=== PATIENT | male | born 1980 | race Caucasian/White ===

== ENCOUNTER 2024-01-10 19:02 | Emergency (ER) | payer OTHER, SELFPAY ==
[2024-01-10 19:10] VITALS: BP 121/69; PULSE 82; RESP 16; TEMP 37; O2SAT 98; BMI 25.1
--- NOTE | 2024-01-10 19:17 | ED_ITS ---
HPI - Arrhythmia/Palpitations General Time Seen by Provider: 19:20 Date Seen: 01/10/24 Chief Complaint: Arrhythmia/Palpitations Stated Complaint: Afib this morning - [facility] Time Seen by Provider: 01/10/24 19:03 Source: patient, family and RN notes reviewed Mode of arrival: ambulatory Limitations: no limitations History of Present Illness HPI narrative: Patient is a 43-year-old male coming in with concern of possible arrhythmia such as atrial fibrillation this morning. Was at work, had sudden onset of his heart is beating excessively fast, felt short of breath with it, was diaphoretic thought he was going to pass out, had pain with this. He actually had to lie down. Symptoms lasted about 5 minutes. He had no associated abdominal pain or GI symptoms at the time. He has had spells but of much shorter duration maybe dating back into grade school. [facility] was evaluated [facility], he states he had stress testing, they did not find anything. He will maybe have these spells a couple times a year but today was the longest it ever happen. He thought he was having a heart attack. After this resolved, he did go about his day and had no complications. There is a little respiratory viruses going around the house, he did take some Sudafed yesterday and today, we did review that these can potentiate arrhythmias in some people. He does do about 2 energy drinks a day. He otherwise uses fish oil, magnesium and creatine daily. No illicit substances. He is not aware of any other significant past medical history. His grandfather had presumed NM and while mowing the lawn while in his 60s. He did not get an autopsy, patient believes that they had to resuscitate and tried to do CPR. Patient has no symptoms now and on and has not had any all day after the 5 minute episode. complaint: rapid heart beat and heart racing Related Data Home Medications ?Medication ?Instructions ?Recorded ?Confirmed No Known Home Medications 05/16/22 05/16/22 Allergies Allergy/AdvReac Type Severity Reaction Status Date / Time No Known Drug Allergies Allergy Verified 05/16/22 09:43 Review of Systems Status of ROS: Reports: 6 or more systems reviewed and unremarkable except as noted in History and below [facility] Medical History (Updated 01/10/24 @ 20:38 by Yenny Herrera MD) Sore throat ?J02.9 - Acute pharyngitis, unspecified (ICD-10) Social History Smoking Status: Never smoker Exam Const: Vital Signs, click to edit/add: Vital Signs - 24 hr 01/10/24 19:10 Temperature 98.6 F Pulse Rate [Pulse Oximeter] 82 Respiratory Rate 16 Blood Pressure [Ri ght Upper Arm] 121/69 Pulse Oximetry 98 Oxygen Delivery Me thod Room Air This patient is a 43-year-old male that is alert, interactive, no apparent distress. Pupils are equal round reactive, sclera clear. Able speak in complete sentences. Neck supple, no adenopathy, thyromegaly masses or nodules. Lungs are clear, good air entry, no wheezing or crackles. CV regular rate and rhythm, no murmur, normal S1-S2, no S3-S4. Abdomen is soft, nontender, nondistended, no organomegaly. He has no lower extremity edema. He is ambulatory into the ED of his own accord. Documenting provider has reviewed patient's vital signs: yes Course Course ED Course: Will have him on cardiac monitoring here but patient understands that unless this happens during a period of monitoring, we will not know what it is. We can do a troponin just to make sure that he has no elevation and need for further cardiac intervention or monitoring. We will also do CBC and basic metabolic panel. Right now is EKG is quite reassuring and he is asymptomatic. We discussed that he may need a longer monitor placed, we do not have those here, he may need to follow up with Cardiology. Reevaluation(s) Time of Reevaluation #1: 20:35 Reevaluation #1: Reviewed with patient his normal labs outside of the possibly low hemoglobin at 13.3. 13.5 is lower limit of normal. I do think this should be rechecked within the next month and further worked up if he is indeed showing some mild changes of anemia. He obviously is going to need to follow-up anyway regarding his symptoms. Vital Signs Vital signs: Initial Vital Signs Temperature 98.6 F 01/10/24 19:10 Temperature Source Temporal Artery Scan 01/10/24 19:10 Pulse Rate 82 01/10/24 19:10 Respiratory Rate 16 01/10/24 19:10 Blood Pressure 121/69 01/10/24 19:10 Blood Pressure Mean 86 01/10/24 19:10 Blood Pressure Position Sitting 01/10/24 19:10 Pulse Oximetry 98 01/10/24 19:10 Oxygen Delivery Method Room Air 01/10/24 19:10 Vital Signs Temperature 98.6 F 01/10/24 19:10 Pulse Rate 82 01/10/24 19:10 Respiratory Rate 16 01/10/24 19:10 Blood Pressure 121/69 01/10/24 19:10 Pulse Oximetry 98 01/10/24 19:10 Oxygen Delivery Method Room Air 01/10/24 19:10 Temperature 98.6 F 01/10/24 19:10 Pulse Rate 82 01/10/24 19:10 Respiratory Rate 16 01/10/24 19:10 Blood Pressure 121/69 01/10/24 19:10 Pulse Oximetry 98 01/10/24 19:10 Oxygen Delivery Method Room Air 01/10/24 19:10 MDM - Arrhythmia/Palpitations Differential Diagnosis Differential diagnosis: Likely palpitations, anxiety, sinus tachycardia, artial fibrillation, artial flutter and supraventricular tachycardia Lab Data Labs: Lab Results 01/10/24 Range/Units 19:45 WBC 7.08 (4.50-11.00) K/uL RBC 4.41 (4.30-5.90) m/uL Hgb 13.3 L (13.5-17.5) gm/dL Hct 39.1 (37.0-53.0) % MCV 89 (80-100) fL MCH 30 (26-34) pg MCHC 34 (32-36) gm/dL RDW Coeff of Bravo 12.3 (11.5-15.5) % Plt Count 272 (140-440) K/uL Neut % (Auto) 73.2 H (42.0-72.0) % Lymph % (Auto) 15.7 L (20-44) % [place] % (Auto) 9.2 (0.0-11.0) % Eos % (Auto) 1.4 (0.0-7.0) % Baso % (Auto) 0.4 (0.0-3.0) % Neut # (Auto) 5.20 (1.7-7.0) K/uL Lymph # (Auto) 1.10 (0.90-2.90) K/uL [place] # (Auto) 0.70 (0.00-0.90) K/UL Eos # (Auto) 0.10 (0.00-0.50) K/uL Baso # (Auto) 0.03 (0.00-0.30) K/uL Abs Immat Gran (auto) 0.01 (0.00-0.30) K/uL Imm/Tot Granulo (auto) 0.1 % Sodium 139 (135-149) mmol/L Potassium 3.9 (3.6-5.1) mmol/L Chloride 106 (96-114) mmol/L Carbon Dioxide 28 (20-32) mmol/L Anion Gap 5 L (7-15) mEq/L BUN 20 (5-24) mg/dL Creatinine 1.3 (0.5-1.5) mg/dL Estimated Creat Clear 78.76 Estimated GFR 69 ml/min Glucose 85 (60-115) mg/dL Calcium 8.8 (8.4-10.6) mg/dL POC Troponin I 0.01 (0.01-0.04) ng/ml ECG Data Attestation: I personally reviewed and interpreted this ECG as follows: (Normal sinus rhythm, 72 beats per minute. No ischemia, no infarct.) ECG interpretation date: 01/10/24 ECG interpretation time: 19:17 Discharge Plan Discharge Clinical Impression: Heart rate fast Patient Disposition: Home, Self-Care Condition: Stable Instructions: Tachycardia (ED) Additional Instructions: You do need to follow-up with your primary care provider. Your hemoglobin needs to be rechecked within the next month, was 13.3 here and 13.5 is the lower limits of normal. If your found to have developed anemia, further evaluation needs to be undertaken. You also need to consider a longer-term heart monitor, talk to them about this or consider Cardiology referral given your history of these episodes. In the interim, she do develop a recurrent episode, do recommend seeking emergent medical evaluation. Call 911 if you need to. There is no evidence of any heart attack or elevated heart enzymes tonight. You have not shown any evidence of arrhythmia while being monitored. Activity Level: Activity as Tolerated Prescriptions: No Action No Known Home Medications Follow Up/Referrals: Provider,Not a Local [Primary Care Provider] - Stand Alone Forms: MyHealth Info Instructions
[2024-01-10 19:54] LABS: Basophils Absolute Auto 0.03 K/uL (0.00-0.30); Basophils Percent Auto 0.4 % (0.0-3.0); Eosinophils Percent Auto 1.4 % (0.0-7.0); Hematocrit 39.1 % (37.0-53.0); Hemoglobin* 13.3 gm/dL (13.5-17.5); Immature Granulocytes Abs Auto 0.01 K/uL (0.00-0.30); Immature Granulocytes Pct Auto 0.1 %; Lymphocytes Percent Auto 15.7 % (20-44); Mean Corpuscular HGB Conc 34 gm/dL (32-36); Mean Corpuscular Hemoglobin 30 pg (26-34); Mean Corpuscular Volume 89 fL (80-100); Monocytes Percent Auto 9.2 % (0.0-11.0); Neutrophils Percent Auto 73.2 % (42.0-72.0); Platelet Count* 272 K/uL (140-440); RDW Coefficient of Variation % 12.3 % (11.5-15.5); Red Blood Count 4.41 m/uL (4.30-5.90); White Blood Count* 7.08 K/uL (4.50-11.00)
--- OUTSIDE RECORDS SUMMARY | 2024-01-10 19:56 | XMS_ITS | Clinical Summary ---
Author Organization [facility] Address [place], [place] [address] Care Team Providers Care Embedded Linux Developer Name Role Phone Gilbert Rico MD Primary Care Provider Allergies No known active allergies Medications Medication Sig Dispensed Refills Start Date End Date Status MEDICATION ORDER COMPOSER Butalbital, unknown dose, gets med from [facility], takes for headaches 0 03/13/2009 Active albuterol HFA 90 mcg/actuation inhalerIndications:B ronchitis Inhale 2 Puffs by mouth every 4 hours if needed (cough, wheeze, tight chest). 1 Inhaler 10/25/2019 Active Active Problems No known active problems Immunizations Name Administration Dates Next Due MMR 09/30/1995 Td (Age >=7 Years) 11/20/1996 Family History Medical History Relation Name Comments Cancer-breast Maternal Grandmother Relation Name Status Comments Maternal Grandmother Social History Tobacco Use Types Packs/Day Years Used Date Smoking Tobacco: Former Cigarettes Q uit: 08/06/2006 Smokeless Tobacco: Never Alcohol Use Standard Drinks/Week Comments Yes 0 (1 standard drink = 0.6 oz pure alcohol) couple times a week- 6-8 drinks at a time Social Connections Answer Date Recorded Frequency of Communication with Friends and Fami ly Not on file 08/15/2021 Financial Resource Strain Answer Date R ecorded Difficulty of Paying Living Expenses Not on file 08/15/2021 Difficulty of Paying Living Expenses Not on file 08/15/2021 Sex and Gender Information Value Date Recorded Sex Assigned at Not on file Gender Identity Not on file Sexual Orientation Not on file Obstetrics History Last Filed Vital Signs Vital Sign Reading Time Taken Comments Blood Pressure 129/71 10/25/2019 8:08 AM CDT Pulse 74 10/25/2019 8:08 AM CDT Temperature 36.3 ??C (97.4 ??F) 10/25/2019 8:08 AM CD T Respiratory Rate 20 10/25/2019 8:08 AM CDT Oxygen Saturation 97% 10/25/2019 8:08 AM CDT Inhaled Oxygen Concentration - - Weight 89.4 kg (197 lb) 04/12/2011 2:46 PM CDT Height 182.9 cm (6') 11/03/2007 8:10 AM CDT Body Mass Index 26.72 11/03/2007 8:10 AM CDT Plan of Treatment Health Maintenance Due Date Last Done Comments Tdap 1989 Depression screening for age 12+ 1990 HIV for age 15-65 1993 BMI (ht and wt on same day) for age 18+ 1996 Hepatitis C screening for ag e 18-79 1996 Tetanus booster 09/08/2019 09/08/2009 (Declined), 11/20/1996 COVID-19 vaccine series (2022-24 season) 2023 Colonoscopy through age 75 2023 Lipids for age 45-75 2023 Influenza for age 9-49 04/15/2024 Pneumococcal series for age 6-64 Aged Out No longer eligible b ased on patient's age to complete this topic Care Teams Embedded Linux Developer Relationship Specialty Start Date End Date Gilbert Rico MD [address] [facility] [address] [place] [id number] PCP - General 09/08/09
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
--- OUTSIDE RECORDS SUMMARY | 2024-01-10 19:56 | XMS_ITS | Encounter Summary ---
Author Name [facility] Organization [facility] Address [address] [place] [address] Support Name Relationship Address Phone FAVIO DODGE Next of Kin [address] [place] [address] FAVIO DODGE Emergency Contact [address] [facility] [place] [address] Insurance Providers: All historical and current Section Date Range: From patient's date of to the date document was created. This section includes the names of all active insurance providers for the patient. Insurance Provider Type of Coverage Plan Name Start of Policy Coverage End of Policy Coverage Group Number Member ID Insurance Provider's Telephone Number Policy Ray's Name Patient's Relationship to Policy Ray [employer] L Aug 15, 2010 [id number] [phone] BELTRAN DODGE PATIENT Selected Encounter This section includes the information on record at [place] for the Encounter. Date/Time Encounter Type Encounter Description Reason Provider Source January 10, 2024 06:38 PM Outpatient Encounter TELEPHONE TRIAGE YANNICK SÁNCHEZ IHE Encounter Template Text not used by [place] Social History: Smoking Status (Most current) and Tobacco Use (All prior to encounter date) This section includes the most current, and the historical, smoking and tobacco- related health factors from the [place] facility where the Encounter took place. Current Smoking Status This section includes the most current smoking, or tobacco-related health factor, from the [place] facility where the Encounter took place. Date/Time Current Smoking Status Comment Facil ity Jul 14, 2022 10:00 AM VA-TOBACCO NEVER USED [facility] Tobacco Use History This section includes a history of the smoking, or tobacco-related health factors, that were collected on or before the date of the Encounter. The data comes from the [place] facility where the Encounter took place. Date/Time Smoking Status/Tobacco Use Comment F acility Mar 20, 2014 12:43 PM FORMER TOBACCO USER 7Y OR GREATE R [facility] December 21, 2012 08:33 AM FORMER TOBACCO USER 7Y OR GREATE R [facility] Sep 28, 2011 01:50 PM FORMER TOBACCO USE >1Y <7Y [facility] Jun 11, 2009 08:00 AM CURRENT TOBACCO USER [facility] Oct 11, 2007 12:23 PM CURRENT TOBACCO USER [facility] Advance Directives: All historical and current Section Date Range: From patient's date of to the date document was created. This section includes ALL of a patient's completed or amended [place] Advance and Rescinded Directives. The entries below indicate that a directive exists for the patient, but an actual copy is not included with this document. The data comes from all [facility]. Date Advance Directives Provider Source Oct 12, 2011 ADVANCE DIRECTIVE DISCUSSION [facility] WASSERMAN [facility] Encounter Notes: All associated encounter notes This section contains the clinical notes associated to the Encounter. Date/Time Encounter Note(s) Provider Source January 10, 2024 06:38 PM RN PROGRESS NOTE: LOCAL TITLE: CCC: CLINICAL TRIAGE STANDARD TITLE: RN PROGRESS NOTE DATE OF NOTE: JANUARY 10, 2024@18:38:31 ENTRY DATE: JANUARY 10, 2024@18:38:31 AUTHOR: MEE SÁNCHEZ COSIGNER: URGENCY: STATUS: COMPLETED Patient Demographics Patient Name: FRANNY DODGE Patient Primary Address: [address] [place] [address] Patient Primary Phone: [phone] Patient : 1980 Patient Age: 43 Call Back Number: [phone] Caller/Recipient Relation to Patient: Self Emergency Contact: FAVIO DODGE Triage Summary Conducted triage/discussed symptoms Utilized the Triage Tool: Yes Chief Complaint: Chest Pain System WHEN: Now, 911 Nurse's Recommendation / WHEN: Now System WHERE: Emergency department Nurse's Recommendation / WHERE: ED Other Nurse's Other / WHERE: local ED WHEN/WHERE modifier reason: Distance from Hospital Patient Disposition Patient/Caregiver agrees to plan of care: Yes Patient WHERE: ED Other Other - Patient Where Disposition: local ED Patient WHEN: Now Patient is Urgent or Emergent Nursing Plan and Disposition Referred patient to higher level of care Instructed to go to Emergency Room (ER) Advised of [place] [employer] [facility] Benefits Nurse Summary Nurse Summary: PATIENT CONCERN/DURATION/ONSET: c/o had an incident this morning of chest tightness with shortness of breath, sweaty, lightheaded and dizzy that lasted about 3-4 minutes. Reports feeling like someone was sitting on the chest with his heart beating 5x the normal. Pike reports feeling anxious at the time and did not check his heart rate. Denies history of heart problems, stroke or near-stroke. Went to work today and just calling now for the symptoms reported above. WHAT HAS PATIENT TRIED TO TREAT THE SYMPTOMS: monitor the symptoms HISTORY/PREVIOUS TREATMENT: Concussion, chronic PTSD WHAT IS PATIENT GOAL FOR THE CALL: Wants to make an appointment with PACT. Was Care Now considered (TELE or VVC)? no PREPARATOR DISPOSITION: Recommended triage is ED evaluation now secondary to severity of symptoms. is instructed to go to the nearest ED. Provided with the post-ED number to call. Pike agreed to this plan of care and verbalized understanding. Pike to call back 07/03, if symptoms changes or gets worse, to go to or ER, if symptoms are severe or emergent. Pike agreed to this plan of care and verbalized understanding. Best contact for is [phone] (Verified). This note was created by a [address] lead developer. Please do not alert this nurse by adding as a signer for future communications. Alerts are not monitored by this user, please reach out to [place] [employer] instead, if indicated. Clinical Contact Center Codes Clinic/Location: [address] PHONE CCC RN [facility] Triage Complete Triage Date: 01/10/2024, 06:30 PM Triage Note: Phone Triage 10 Jan 2024 23:27:06 +0000 [facility] Demographics 43 y/o Male Results CC: Chest Pain Software suggested: , Software suggested follow-up location: Emergency department Values and Measures Duration of CC: 1 Days Positive Responses HPI: chest pain, crushing quality HPI: syncope Negative Responses Denies: PMH: angina Denies: PMH: heart attack Pike Education Verbal Education Provided: Based on your responses, you should be treated in the emergency department. Take action: Consider calling an ambulance. You need to see a provider now or your condition could worsen. /yasir/ Mee Sánchez MS, RN Registered Nurse V[facility] Signed: 01/10/2024 18:38 MEE SÁNCHEZ [facility]
[2024-01-10 19:58] LABS: Troponin, Point-of-Care* 0.01 ng/ml (0.01-0.04)
[2024-01-10 20:05] LABS: Slide Review Reflex No
[2024-01-10 20:07] LABS: Chloride* 106 mmol/L (96-114)
[2024-01-10 20:08] LABS: Potassium* 3.9 mmol/L (3.6-5.1); Sodium* 139 mmol/L (135-149)
[2024-01-10 20:10] LABS: Creatinine* 1.3 mg/dL (0.5-1.5); Est. Creatinine Clearance* 78.76; Estimated Glomerular Filt Rate 69 ml/min
[2024-01-10 20:11] LABS: Anion Gap 5 mEq/L (7-15); Blood Urea Nitrogen* 20 mg/dL (5-24); Calcium* 8.8 mg/dL (8.4-10.6); Carbon Dioxide* 28 mmol/L (20-32); Glucose* 85 mg/dL (60-115)
[2024-01-10 20:50] VITALS: BP 118/74; PULSE 85; RESP 16; TEMP 37; O2SAT 98
[2024-01-10 21:07] VITALS: BP 118/74; PULSE 85; RESP 16; TEMP 37
== END 2024-01-10 21:07 | disposition home or self-care (01) ==
PROVIDERS: Emergency Provider Family Medicine
DX: R00.0 Tachycardia, unspecified (principal)
CPT/HCPCS: 36415; 80048; 84484; 85025; 93005; 99284

== ENCOUNTER 2024-07-19 15:16 | Outpatient (CLI) | payer OTHER, SELFPAY ==
--- OUTSIDE RECORDS SUMMARY | 2024-07-19 15:48 | XMS_ITS | Continuity of Care Document ---
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 07/14/20[facility] History of tobacco use FORMER TOBACCO US ER 7Y OR GREATER 02/09/2018 [facility] History of tobacco use FORMER TOBACCO US ER 7Y OR GREATER 02/12/2015 [facility] History of tobacco use FORMER TOBACCO US ER 7Y OR GREATER 03/20/2014 [facility] History of tobacco use FORMER TOBACCO US ER 7Y OR GREATER 12/21/2012 [facility] History of tobacco use FORMER TOBACCO US E >1Y <7Y 10/11/2011 [facility] History of tobacco use FORMER TOBACCO US E >1Y <7Y 09/28/2011 [facility] History of tobacco use CURRENT TOBACCO USER 06/11/2009 [facility] History of tobacco use CURRENT TOBACCO USER 10/11/2007 [facility] This section is an empty social history section. [facility] Advance Directives List of completed, amended, or rescinded Advance Directives on record at Department of Veterans Affairs facilities. An actual copy of the Directive is not included. Date Advance Directive Provider Source 10/12/2011 ADVANCE DIRECTIVE DISCUSSION VILMA WASSERMAN [facility]
--- OUTSIDE RECORDS SUMMARY | 2024-07-19 15:49 | XMS_ITS | Clinical Summary ---
Author Organization [facility] Address [place], [place] [address] Care Team Providers Care Insulation Power Unit Tender Name Role Phone Gilbert Rico MD Primary Care Provider Allergies No known active allergies Medications Medication Sig Dispensed Refills Start Date End Date Status MEDICATION ORDER COMPOSER Butelainebital, unknown dose, gets med from [facility], takes for headaches 0 03/13/2009 Active albuterol HFA 90 mcg/actuation inhalerIndications:B ronchitis Inhale 2 Puffs by mouth every 4 hours if needed (cough, wheeze, tight chest). 1 Inhaler 10/25/2019 Active triamcinolone (ARISTOCORT; KENALOG) 0.1 % cream Apply topically to affected area(s). 04/11/2024 Active Active Problems No known active problems Encounters Date Type Department Care Team Description 04/22/2024 12:00 PM CDT Ancillary Procedure [facility] [address] [facility] [address] [place] [address] 04/22/2024 11:20 AM CDT Office Visit [facility] [address] [facility] [address] [place] [address] Ebony Pat NP Influenza Like Illness 04/22/2024 Travel from Last 3 Months Immunizations Name Administration Dates Next Due MMR 09/30/1995 Td (Age >=7 Years) 11/20/1996 Family History Medical History Relation Name Comments Cancer-breast Maternal Grandmother Relation Name Status Comments Maternal Grandmother Social History Tobacco Use Types Packs/Day Years Used Date Smoking Tobacco: Former Cigarettes Q uit: 08/06/2006 Smokeless Tobacco: Never Tobacco Cessation:Counseling Given: Not Answered Alcohol Use Standard Drinks/Week Comments Yes 0 (1 standard drink = 0.6 oz pur e alcohol) some but very limited Social Connections Answer Date Recorded Frequency of [...] Sign Reading Time Taken Comments Blood Pressure 127/63 04/22/2024 11:24 AM CDT Pulse 74 04/22/2024 11:24 AM CDT Temperature 36.4 C (97.6 F) 04/22/2024 11:24 AM CDT Respiratory Rate 15 04/22/2024 11:24 AM CDT Oxygen Saturation 96% 04/22/2024 11:24 AM CDT Inhaled Oxygen Concentration - - Weight 85.3 kg (188 lb) 04/22/2024 11:24 AM CDT Height 182.9 cm (6') 11/03/2007 8:10 AM CDT Body Mass Index - - Plan of Treatment Health Maintenance Due Date Last Done Comments Tdap 1989 Depression screening for age 12+ 1990 HIV for age 15-65 1993 BMI (ht and wt on same day) for age 18+ 1996 Hepatitis C screening for ag e 18-79 1996 Tetanus booster 09/08/2019 09/08/2009 (Declined), 11/20/1996 Colonoscopy through age 75 2023 Lipids for age 45-75 2023 COVID-19 vaccine series ( season) 2024 Influenza for age 9-49 04/15/2024 Pneumococcal series for age 6-64 Aged Out No longer eligible b ased on patient's age to complete this topic Procedures Procedure Name Priority Date/Time Associated Diagnosis Comments CBC WITH AUTO DIFFERENTIAL STAT 04/22/2024 12:16 PM CDT Fatigue, unspecified type BASIC METABOLIC PANEL STAT 04/22/2024 12:16 PM CDT Fatigue, unspecified type VITAMIN B12 STAT 04/22/2024 12:16 PM CDT Fatigue, unspecified type VITAMIN D 25 (DEFICIENCY) STAT 04/22/2024 12:16 PM CDT Fatigue, unspecified type LYME SCREEN W/REFLEX STAT 04/22/2024 12:16 PM CDT Fatigue, unspecified type CBC WITH AUTO DIFFERENTIAL STAT 04/22/2024 12:16 PM CDT Fatigue, unspecified type HETEROPHILE STAT 04/22/2024 12:16 PM CDT Sore throat XR CHEST 2 VIEWS PA AND LATERAL STAT 04/22/2024 12:07 PM CDT Fatigue, unspecified type from Last 3 Months Results * CBC WITH AUTO DIFFERENTIAL (04/22/2024 12:16 PM CDT) Pathologist [facility] WHITE BLOOD COUNT 7.6 4.5 - 11.0 thou/cu mm 04/22/2024 8:19 PM CDT [facility] RED BLOOD COUNT 4.73 4.30 - 5.90 mil/cu mm 04/22/2024 8:19 PM CDT [facility] HEMOGLOBIN 14.5 13.5 - 17.5 g/dL 04/22/2024 8:19 PM CDT [facility] HEMATOCRIT 42.6 37.0 - 53.0 % 04/22/2024 8:19 PM CDT [facility] MCV 90 80 - 100 fL 04/22/2024 8:19 PM CDT [facility] MCH 30.7 26.0 - 34.0 pg 04/22/2024 8:19 PM CDT [facility] MCHC 34.0 32.0 - 36.0 g/dL 04/22/2024 8:19 PM CDT [facility] RDW 12.6 11.5 - 15.5 % 04/22/2024 8:19 PM CDT [facility] PLATELET COUNT 303 140 - 440 thou/cu mm 04/22/2024 8:19 PM CDT [facility] MPV 9.6 6.5 - 11.0 fL 04/22/2024 8:19 PM CDT [facility] NRBC 0.0 % 04/22/2024 8:19 PM CDT [facility] ABS NRBC 0.0 thou /cu mm 04/22/2024 8:19 PM CDT [facility] % NEUT 77.1 % 04/22/2024 8:19 PM CDT [facility] % LYMPH 13.2 % 04/22/2024 8:19 PM CDT [facility] % MONO 7.1 % 04/22/2024 8:19 PM CDT [facility] % EOS 1.6 % 04/22/2024 8:19 PM T [facility] % BASO 0.7 % 04/22/2024 8:19 PM T [facility] % IMMATURE GRAN (METAS,MYELOS,ND OS) 0.3 % 04/22/2024 8:19 PM CDT [facility] ABSOLUTE NEUTROPHILS 5.9 1.7 - 7.0 thou/cu mm 04/22/2024 8:19 PM CDT [facility] ABSOLUTE LYMPHOCYTES 1.0 0.9 - 2.9 thou/cu mm 04/22/2024 8:19 PM CDT [facility] ABSOLUTE MONOCYTES 0.5 <0.9 thou/cu mm 04/22/2024 8:19 PM CDT [facility] ABSOLUTE EOSINOPHILS 0.1 <0.5 thou/cu mm 04/22/2024 8:19 PM CDT [facility] ABSOLUTE BASOPHILS 0.1 <0.3 thou/cu mm 04/22/2024 8:19 PM CDT [facility] ABSOLUTE IMMATURE GRANULOCYTES(MET ,MYELOS,PROS) 0.0 <0.3 thou/cu mm 04/22/2024 8:19 PM CDT [facility] Blood BLOOD SPECIMEN / Unknown Venipuncture / Unknown 04/22/2024 12:16 PM CDT 04/22/2024 12:16 PM CDT Ebony Pat NP HEMATOLOGY Performing Organization Address [facility] Co de Phone Number [facility] [address] [place] [address], * VITAMIN D 25 (DEFICIENCY) (04/22/2024 12:16 PM CDT) Pathologist [facility] VITAMIN D TOTAL 30.8 20.0 - 80.0 ng/mL 04/22/2024 9:05 PM CDT [facility] Blood BLOOD SPECIMEN / Unknown Venipuncture / Unknown 04/22/2024 12:16 PM CDT 04/22/2024 12:16 PM CDT Narrative [facility] - 04/22/2024 9:05 PM CDT Vitamin D Status Deficiency: <20 ng/mL Insufficiency: 20-29 ng/mL Sufficiency: 30-80 ng/mL Possible Toxicity: >80 ng/mL Based on [employer] recommendations Biotin supplements may cause clinically significant interference for this test assay. If interference is suspected, it is strongly recommended that biotin is discontinued for at least one week prior to retesting. Ebony Pat NP SEND OUTS Performing Organization Address [facility] Co de Phone Number [facility] [address] [place] [address], [place] * LYME SCREEN W/REFLEX (04/22/2024 12:16 PM CDT) Pathologist [facility] LYME SCREEN W/REFLEX Negative Negative 04/23/2024 9:28 AM CDT [facility] Comment: No laboratory evidence of infection with B. burgdorferi (Lyme disease). Negative results may occur in patients recently infected (less than or equal to 14 days) with B. burgdorferi. If recent infection is suspected, repeat testing on a new sample collected in 7-14 days is recommended. Blood BLOOD SPECIMEN / Unknown Venipuncture / Unknown 04/22/2024 12:16 PM CDT 04/22/2024 12:16 PM CDT Ebony Pat NP SEND OUTS Performing Organization Address [facility]/ZIP Co de Phone Number [facility] [address] [place] [address], [place] * HETEROPHILE (04/22/2024 12:16 PM CDT) HETEROPHILE Negative Negative 04/22/2024 12:32 PM CDT [facility] Blood BLOOD SPECIMEN / Unknown Venipuncture / Unknown 04/22/2024 12:16 PM CDT 04/22/2024 12:16 PM CDT Ebony Pat NP HEMATOLOGY Performing Organization Address [facility] Co de Phone Number [facility] [address] [place] [phone], [place] * VITAMIN B12 (04/22/2024 12:16 PM CDT) Pathologist [facility] VITAMIN B12 806 232 - 1,245 pg/mL 04/22/2024 9:05 PM CDT [facility] Blood BLOOD SPECIMEN / Unknown Venipuncture / Unknown 04/22/2024 12:16 PM CDT 04/22/2024 12:16 PM CDT Narrative [facility] - 04/22/2024 9:05 PM CDT Biotin supplements may cause clinically significant interference for this test assay. If interference is suspected, it is strongly recommended that biotin is discontinued for at least one week prior to retesting. Ebony Pat NP CHEMISTRY Performing Organization Address [facility] Co de Phone Number [facility] [address] [address], [place] * (ABNORMAL) BASIC METABOLIC PANEL (04/22/2024 12:16 PM CDT) SODIUM 140 136 - 145 mmol/L 04/22/2024 9:05 PM T [facility] POTASSIUM 4.7 3.5 - 5.1 mmol/L 04/22/2024 9:05 PM T [facility] CHLORIDE 104 98 - 107 mmol/L 04/22/2024 9:05 PM T [facility] CO2,TOTAL 26 22 - 29 mmol/L 04/22/2024 9:05 PM T [facility] ANION GAP 10 5 - 18 04/22/2024 9:05 PM T [facility] GLUCOSE 78 70 - 99 mg/dL 04/22/2024 9:05 PM T [facility] CALCIUM 8.8 8.6 - 10.0 mg/dL 04/22/2024 9:05 PM [facility] BUN 22(H) 6 - 20 mg/dL 04/22/2024 9:05 PM T [facility] CREATININE 1.35(H) 0.70 - 1.20 mg/dL 04/22/2024 9:05 PM [facility] BUN/CREAT RATIO 16 10 - 20 9:05 PM [facility] eGFR 66(L) >90 mL/min/1.7 3m2 04/22/2024 9:05 PM [facility] Comment:As of 2021, eG FR is calculated by the CKD-EPI creatinine equation without race adjustment. eGFR can be influenced by muscle mass, exercise, and diet. The reported eGFR is an estimation only and is only applicable if the renal function is stable. Blood BLOOD SPECIMEN / Unknown Venipuncture / Unknown 04/22/2024 12:16 PM CDT 04/22/2024 12:16 PM CDT Ebony Pat NP CHEMISTRY [facility] [address] [place] [address], [place] * XR CHEST 2 VIEWS PA AND LATERAL (04/22/2024 12:07 PM CDT) Anatomical Region Laterality Modality CHEST, THORAX, Lung, HEART Digit al Radiography 04/22/2024 12:2 6 PM CDT Impressions 04/22/2024 12:26 PM CDT No evidence of acute cardiopulmonary disease. Dictated by Fish Donato MD @ 04/22/2024 12:26:05 PM (Electronically Signed) Narrative 04/22/2024 12:26 PM CDT For Patients: As a result of the Cures Act, medical imaging exams and procedure reports are released immediately into your electronic medical record. You may view this report before your referring provider. If you have questions, please contact your health care provider. INDICATION: Fatigue, unspecified. TECHNIQUE: Chest 2 views. COMPARISON: None. FINDINGS: No pneumothorax or pleural effusion. Lungs are clear. Cardiac and mediastinal contours are within normal limits. Upper abdomen and osseous structures as imaged show no acute abnormality. Procedure Note Fish Donato, DO - 04/22/2024 For Patients: As a result of the Cures Act, medical imagingexams and procedure reports are released immediately into your electronicmedical record. You may view this report before your referring provider.If you have questions, please contact your health care provider. INDICATION: Fatigue, unspecified. TECHNIQUE: Chest 2 views. COMPARISON: None. FINDINGS: No pneumothorax or pleural effusion. Lungs are clear. Cardiac andmediastinal contours are within normal limits. Upper abdomen and osseousstructures as imaged show no acute abnormality. IMPRESSION: No evidence of acute cardiopulmonary disease. Dictated by Fish Donato MD @ 04/22/2024 12:26:05 PM (Electronically Signed) Ebony aPt NP GENERAL IMAGING from Last 3 Months Care Teams Insulation Power Unit Tender Relationship Specialty Start Date End Date Gilbert Rico MD [address] [facility] [address] [place] [address] PCP - General 09/08/09
== END 2024-07-19 15:17 | disposition home or self-care (01) ==
PROVIDERS: PCP Family Medicine; Visit Provider Family Medicine
DX: Z13.6 Encounter for screening for cardiovascular disorders (principal); Z13.1 Encounter for screening for diabetes mellitus; Z12.5 Encounter for screening for malignant neoplasm of prostate; Z11.59 Encounter for screening for other viral diseases; Z76.89 Persons encountering health services in other specified circumstances
CPT/HCPCS: 80053; 80061; 86803; G0103

== ENCOUNTER 2024-10-09 07:23 | Outpatient (CLI) | payer OTHER, SELFPAY | END 2024-10-09 07:24 | disposition home or self-care (01) | PROVIDERS: PCP Family Medicine; Visit Provider Otolaryngology | DX: J32.9 Chronic sinusitis, unspecified (principal); J32.0 Chronic maxillary sinusitis; R59.9 Enlarged lymph nodes, unspecified; M47.892 Other spondylosis, cervical region | CPT/HCPCS: 70486; 70491; Q9967 ==

== ENCOUNTER 2024-10-25 13:09 | Outpatient (CLI) | payer OTHER, SELFPAY ==
--- NOTE | 2024-11-13 12:33 | W.PM.SLEEP ---
Sleep Study Details Details Interpreting Provider: Lam Date of Sleep Study: 10/25/24 Sleep Study Details: STUDY TYPE:? Home unattended ? BMI:? 26.1 ORDERING PROVIDER:? Lam INDICATION:? Concern about sleep apnea ? SLEEP SUMMARY:? 482 minutes monitored RESPIRATORY SUMMARY:? AHI 6 Low oxygen 90 Snoring 92.5% PERIODIC LIMB MOVEMENTS OF SLEEP:? Not recorded CARDIAC:? Range 49-127, mean 60.7 beats per minute IMPRESSION:? Mild obstructive sleep apnea, snoring RECOMMENDATION: Treatment options include CPAP, dental appliance and/or airway expansion surgery.
== END 2024-10-25 13:10 | disposition home or self-care (01) ==
LOC: SLEEP 13:10
PROVIDERS: PCP Family Medicine; Visit Provider Otolaryngology
DX: G47.33 Obstructive sleep apnea (adult) (pediatric) (principal)
CPT/HCPCS: 95806

== ENCOUNTER 2025-02-11 15:30 | Outpatient (RCR) | payer SELFPAY | END 2025-06-11 23:59 | disposition home or self-care (01) | PROVIDERS: PCP Family Medicine; Visit Provider Physician Assistant Medical | DX: M54.50 Low back pain, unspecified (principal); Z51.89 Encounter for other specified aftercare | CPT/HCPCS: 97110; 97140; 97161; 97530 ==

== ENCOUNTER 2025-05-06 11:13 | Outpatient (CLI) | payer OTHER, SELFPAY | END 2025-05-06 11:14 | disposition home or self-care (01) | LOC: NFLDREF 05-16 11:39 | PROVIDERS: PCP Family Medicine; Referring Provider Family Medicine; Visit Provider Physician Assistant Medical | DX: R53.82 Chronic fatigue, unspecified (principal); J32.9 Chronic sinusitis, unspecified; R05.9 Cough, unspecified | CPT/HCPCS: 82306; 82607; 82728 ==